=== PATIENT | female | born 1955 | race Caucasian/White ===

== ENCOUNTER → 2016-08-21 | Emergency (ER) | payer OTHER ==
[2016-08-21 14:16] VITALS: BP 145/88; PULSE 66; RESP 16; TEMP 98.4; O2SAT 98
--- NOTE | 2016-08-21 15:38 | UCPHY ---
H & P Time Seen by Provider: 08/21/16 15:17 Patient Type: New HPI/ROS: This patient slipped with a knife from the kitchen cooking and sustained a laceration to her left thumb shortly prior to arrival here with moderate pain and moderate bleeding that slowed with direct pressure. She reports no other injuries. ROS:No difficulty moving the thumb. No numbness. 5 point ROS is otherwise negative. Past Medical/Surgical History: Immunizations up-to-date. Smoking Status: Never smoked Physical Exam: Physical Exam Vital signs are normal. General: No acute distress HEENT: Atraumatic. Eyes: Pupils equal and react to light. Extraocular motions are intact. Lungs: No respiratory distress. Cardiac: Brisk capillary refill is intact throughout. Pulses are 2+ and symmetric in the affected extremity. Skin: No rash or pallor. There is 1.5 cm full-thickness laceration to the palmar aspect of the left thumb middle phalanx region. No active bleeding. No foreign bodies under examination. Subcutaneous tissues evident but no deeper structures are injured. Neuro: Alert with no sensorimotor deficits to the affected digit.. Constitutional: Initial Vital Signs Temperature (C) 36.9 C 08/21/16 14:12 Heart Rate 66 08/21/16 14:12 Respiratory Rate 16 08/21/16 14:12 Blood Pressure 145/88 H 08/21/16 14:12 O2 Sat (%) 98 08/21/16 14:12 Allergies/Adverse Reactions: No Known Allergies Allergy (Unverified 08/21/16 14:16) Home Medications: Medication Instructions Recorded Synthroid 08/21/16 MDM/Departure - MDM Procedures: Digital block: After verbal consent, using a 50 50 mix of 0.5% Marcaine 2% plain lidocaine, 27 gauge needle, chlorhexidine scrub under sterile conditions- 3 injections were administered to the base of the affected finger, 8 mL with good effect. Patient tolerated this well. There were no complications. The wound is 1.5 cm described physical exam subcutaneous tissues evident but no deeper structures are injured.. The wound was copiously irrigated with saline. The wound was explored for foreign bodies and none were found. The wound was prepped and draped in the normal sterile fashion. The edges were reapproximated using 4 0 Ethilon-4 running sutures with good hemostasis and cosmesis. The patient tolerated the procedure well. There were no complications - Depart Disposition: Home, Routine, Self-Care Clinical Impression: Thumb laceration Qualifiers: Encounter type: initial encounter Laterality: left Qualified Code(s): S61.012A - Laceration without foreign body of left thumb without damage to nail, initial encounter Condition: Good Instructions: Finger Laceration (ED) Additional Instructions: Diagnosis: Thumb laceration Plan: Keep the wound clean and dry for the next 2 days. Then clean it daily with warm soapy water Return for suture removal in 10-12 days Return sooner if he develops redness, discharge or other concerns for infection. Referrals: ESTHELA WILSON MD [Other] - As per Instructions - PQRS PQRS Measurement: NA
== END | disposition home or self-care (01) ==
LOC: CED 13:57
DX: S61.012A Laceration without foreign body of left thumb without damage to nail, initial encounter (principal); W26.0XXA Contact with knife, initial encounter; Y93.G1 Activity, food preparation and clean up; Y92.000 Kitchen of unspecified non-institutional (private) residence as the place of occurrence of the external cause
CPT/HCPCS: 12001-PO; 99203-PO; G0463-PO

== ENCOUNTER 2017-10-09 10:49 | Emergency (ER) | payer OTHER ==
[2017-10-09] MEDS ORDERED: IBUPROFEN 600 MG TAB PO ONE (11:12)
--- NOTE | 2017-10-09 11:17 | EDPHY ---
H & P Stated Complaint: TRIPPED AND FELL NO LOC/OR NECK PAIN/L SHOULDER/ARM INJ FACE LAC Time Seen by Provider: 10/09/17 11:16 HPI/ROS: HPI: This is a 62-year-old female who presents with Chief Complaint: TRIPPED AND FELL NO LOC/OR NECK PAIN/L SHOULDER/ARM INJ FACE LAC Location: Left orthodox area, left shoulder Quality: Injury Duration: 45 min prior to arrival Signs and Symptoms: + bleeding, no radiation, no numbness, no weakness, no tingling, no incontinence, + decreased range of motion, no swelling, + pain, no fever Timing: Acute Severity: 12/19 Context: Patient is right-hand dominant, presents accompanied by friend with complaints of left shoulder injury and cut to left orthodox area. Patient was walking on the sidewalk when her shoe tripped over uneven cement. She reports that she lost her balance and started to fall forward. She landed directly on her left shoulder and then her left orthodox area struck the cement. Denies LOC/ head injury/neck pain/dizziness/nausea/vomiting/amnesia. Reports tetanus is current. Does not take any blood thinners. She reports that she felt immediate , moderate, nonradiating pain in the left lateral shoulder area, nonradiating in nature accompanied by decreased range of motion secondary to pain. She reports that she can move her left wrist and fingers without difficulty. She is guarding her left arm toward her chest. This was a witnessed accidental fall. Modifying Factors: None Comment: ROS: see HPI Constitutional: No fever, no chills, no weight loss Eyes: No blurred vision Respiratory: No shortness of breath, no cough Cardiovascular: No chest pain Gastrointestinal: No nausea, no vomiting no diarrhea Genitourinary: No dysuria Extremities: No myalgias Neurologic: No weakness, no numbness Skin: No rashes Hematologic: No bruising, no bleeding MEDICAL/SURGICAL/SOCIAL HISTORY: Medical history: Hypothyroidism Surgical history: Denies Social history: Retired, . Family history noncontributory CONSTITUTIONAL: Extremely polite and cooperative, adult white female, awake and alert, no obvious distress HEENT: Superficial abrasion noted to left orthodox-no active bleeding and normocephalic, PERRL, EOMI. no globe entrapment, no raccoon eyes. no Simeon signs.Tympanic membranes clear. No tympanic membrane rupture. Nares patent; no septal hematoma. Oropharynx clear, no exudate and moist pink mucosa. No malocclusion. no dental trauma. Airway patent. No lymphadenopathy. NECK: supple, no midline tenderness, flexion 45 degrees, extension 45 degrees, right and left lateral flexion 45 degrees. No meningismus. Cardiovascular: Normal S1/S2, regular rate, regular rhythm, without murmur rub or gallop. PULMONARY/CHEST: Symmetrical and nontender. no crepitus. Clear to auscultation bilaterally. Good air movement. No accessory muscle usage. ABDOMEN: Soft, nondistended, nontender, no ecchymosis, no rebound, no guarding , no peritoneal signs, no masses or organomegaly. No CVAT. PELVIC: no pain with rocking; bilateral hips flexion 125 degrees, extension 30 degrees, with no pain internal rotation and no pain external rotation. BACK: No midline tenderness, no paraspinous spasm, deep tendon reflexes 2/2, no pain with straight leg raise EXTREMITIES: 2/2 pulses, patient is holding left arm flexed at the elbow against her chest. Left ELBOW: Full extension to 180, flexion to 150, no tenderness over medial epicondyle, no tenderness over lateral epicondyle, no effusion. Left WRIST: Extension to 70, flexion to 80, radial deviation to 20 degree, ulnar deviation to 30, no scaphoid tenderness, no tenderness over ulnar styloid, no tenderness over radial styloid. able to move all 5 fingers with good light touch sensation. no deformities, no clubbing, no cyanosis or edema. NEUROLOGICAL: no focal neuro deficits. GCS 15. SKIN: Warm and dry, no erythema. no rash. Good capillary refill. Source: Patient, RN/MD Exam Limitations: No limitations - Personal History Current Tetanus/Diphtheria Vaccine: Yes Tetanus Vaccine Date: < 10 YEARS - Medical/Surgical History Hx Asthma: No Hx Chronic Respiratory Disease: No Hx Diabetes: No Hx Cardiac Disease: No Hx Renal Disease: No Hx Cirrhosis: No Hx Alcoholism: No Hx HIV/AIDS: No Hx Splenectomy or Spleen Trauma: No Other PMH: HYPOTHYROID/HTN - Social History Smoking Status: Never smoked Constitutional: Initial Vital Signs Temperature (C) 36.5 C 10/09/17 10:59 Heart Rate 60 10/09/17 10:59 Respiratory Rate 18 10/09/17 10:59 Blood Pressure 112/86 H 10/09/17 10:59 O2 Sat (%) 92 10/09/17 10:59 O2 Delivery Mode Room Air Allergies/Adverse Reactions: hydrocodone Allergy (Verified 10/09/17 10:58) oxycodone Allergy (Verified 10/09/17 10:58) Home Medications: Medication Instructions Recorded Synthroid 08/21/16 Chlorthalidone 10/09/17 Cyclobenzaprine [Flexeril 10 MG 10 mg PO TID PRN #15 tab 10/09/17 (*)] morphINE IR [morphINE IR 15 mg (*)] 15 mg PO Q8 PRN #12 tab 10/09/17 Medical Decision Making - Diagnostics Imaging Results: Imaging Impressions Shoulder X-Ray 10/09/17 11:07 Impression: Impacted fracture at the surgical neck of the proximal left humerus , with an avulsion fracture off the greater tuberosity. Procedures: Procedure: Laceration repair. Verbal consent was obtained from the patient. The left orthodox, simple, deep, 1/ 4 inch x 1/4 inch laceration was anesthetized in the usual fashion using 5 mL of 0.5% bupivacaine with epinephrine. The wound was irrigated, draped and explored to its base with a gloved finger. There were no deep structures involved. No tendon injury was identified. The wound was repaired with #3, 6- 0 Prolene. Good hemostasis was achieved and patient tolerated procedure well. The procedure was performed by myself. Procedure: Splint placement. A left coaptation splint was applied by myself and with the help of Emergency Room fire control technician g. After application of the splint I returned and re-examined the patient. The splint was adequately immobilizing the joint and distal to the splint the patient's circulation and sensation was intact. ED Course/Re-evaluation: Given morphine 15 mg as allergy to hydrocodone and oxycodone along with ibuprofen upon arrival Reviewed showed left shoulder x-ray via PACs and shows left humeral greater tuberosity and neck fracture; comminuted; minimally displaced. Discussed possibility of rotator cuff tear as well due to mechanism injury and greater tuberosity being fractured as well. Superficial abrasion on orthodox; let applied; irrigated thoroughly; bacitracin clean sterile dressing placed. Patient does not take any blood thinners, age < 65 and no LOC/neurological deficits. Patient Politely declined head CT scan and cervical CT scan. Placed in coaptation splint and given sling. Given p.o. Flexeril after splint placement due to muscle spasm. No signs of neurovascular compromise/tenting of skin/compartment syndrome/ extremities and joints examined above and below area of concern and are neurovascularly intact/axillary or brachial plexus injury. This patient was seen under the supervision of my secondary supervising physician. I evaluated care for this patient independently. Discussed this patient with Dr. Bravo who did not see the patient. Differential Diagnosis: Differential diagnosis includes but is not limited to AC separation, humerus fracture, clavicle fracture, rotator cuff injury, concussion. - Data Points Medications Given: Discontinued Medications Ibuprofen (Motrin) 600 mg PO EDNOW ONE Stop: 10/09/17 11:13 Last Admin: 10/09/17 11:13 Dose: 600 mg Morphine Sulfate (Morphine Ir) 15 mg PO ONCE ONE Stop: 10/09/17 11:26 Last Admin: 10/09/17 11:46 Dose: 15 mg Tetracaine/Epinephrine/Lidocaine (Let Gel Topical) 1 ea TP EDNOW ONE Stop: 10/09/17 11:25 Last Admin: 10/09/17 11:32 Dose: 1 ea Departure - Departure Disposition: Home, Routine, Self-Care Clinical Impression: Closed fracture of neck of left humerus Qualifiers: Encounter type: initial encounter Qualified Code(s): S42.212A - Unspecified displaced fracture of surgical neck of left humerus, initial encounter for closed fracture Abrasion of orthodox Qualifiers: Encounter type: initial encounter Qualified Code(s): S00.81XA - Abrasion of other part of head, initial encounter Injury of left rotator cuff Qualifiers: Encounter type: initial encounter Qualified Code(s): S46.002A - Unspecified injury of muscle(s) and tendon(s) of the rotator cuff of left shoulder, initial encounter Laceration of forehead without complication Qualifiers: Encounter type: initial encounter Qualified Code(s): S01.81XA - Laceration without foreign body of other part of head, initial encounter Condition: Good Instructions: Care For Your Stitches (ED), How to Use a Sling (ED), Splint Care (ED), ORIF (DC), Facial Laceration (ED), Proximal Humerus Fracture (ED) Additional Instructions: Keep the splint dry and in place until seen by Orthopedics. Wear the sling to help with comfort. Wash abrasion daily with mild soap and water; then pat dry; apply topical antibiotic ointment daily until fully healed. Wound Care Follow-Up: Removal of sutures in [ 5 ] days. Suture removal is complimentary in uncomplicated cases. Infection or abnormal findings would require reevaluation by the MD. In that case, you may be billed. Take Tylenol 650 mg every 4 hours and/or Ibuprofen 600 mg every 8 hours with food as needed for pain. Take morphine 15 mg every 8 hr as needed for severe, breakthrough pain. Apply ice for 30 minutes at a time; 2-3 times per day for the next 1-2 days. Please observe concussion precautions. If you are having signs and symptoms of concussion last greater than 1-2 weeks, follow-up with Dr. Gannon in the concussion Clinic. Call today orthopedic office of Dr. Ross for follow up with Orthopedics in 5- 7 days at which time they will evaluate and recommend with you if conservative management versus surgery is indicated. Return to the ER immediately if you experience new or worsening pain, discoloration, numbness, tingling, or any other symptoms that concern you. Follow-Up: Please follow-up as noted above. Follow-up sooner if your condition worsens or if you develop any new problems. Call as soon as possible for an appointment. Be clear when you call for an appointment that this is an Emergency Department follow-up. Contact the Emergency Department if you have trouble arranging follow-up care. Our referrals are not based on your insurance network. When time allows, contact your insurance carrier to verify the referral physician is in your plan. If not, get a referral for an in-personal computer network analyst. Referrals: Wale Ross MD [Medical Doctor] - As per Instructions Shikha Boss MD [Primary Care Provider] - As per Instructions Nani Gannon MD [Medical Doctor] - As per Instructions Prescriptions: Cyclobenzaprine [Flexeril 10 MG (*)] 10 mg PO TID PRN #15 tab PRN Reason: Spasms morphINE IR [morphINE IR 15 mg (*)] 15 mg PO Q8 PRN #12 tab PRN Reason: Pain, Breakthrough
[2017-10-09] MEDS ORDERED: LET GEL TOPICAL 1 EA SYR TP ONE (11:24)
[2017-10-09] MEDS ORDERED: CYCLOBENZAPRINE 10 MG TAB PO ONE (13:01)
[2017-10-09 13:03] VITALS: BP 117/95
== END 2017-10-09 13:14 | disposition home or self-care (01) ==
PROC: 0HQ1XZZ Repair Face Skin, External Approach (ICD-10-PCS; principal; 2017-10-09)
DX: S42.212A Unspecified displaced fracture of surgical neck of left humerus, initial encounter for closed fracture (principal); S46.002A Unspecified injury of muscle(s) and tendon(s) of the rotator cuff of left shoulder, initial encounter; S01.81XA Laceration without foreign body of other part of head, initial encounter; W01.198A Fall on same level from slipping, tripping and stumbling with subsequent striking against other object, initial encounter; Y92.480 Sidewalk as the place of occurrence of the external cause; Y99.8 Other external cause status; Y93.01 Activity, walking, marching and hiking
CPT/HCPCS: A4565

== ENCOUNTER → 2017-10-19 | Outpatient (CLI) | payer OTHER | LOC: BMCIMAGING 10:38 | PROVIDERS: ATTEND Orthopaedic Surgery Hand Surgery | DX: S42.202D Unspecified fracture of upper end of left humerus, subsequent encounter for fracture with routine healing (principal) ==

== ENCOUNTER → 2017-10-26 | Outpatient (CLI) | payer OTHER | LOC: BMCIMAGING 15:13 | PROVIDERS: ATTEND Orthopaedic Surgery Hand Surgery | DX: S42.202D Unspecified fracture of upper end of left humerus, subsequent encounter for fracture with routine healing (principal) ==

== ENCOUNTER → 2017-11-21 | Outpatient (CLI) | payer OTHER | LOC: BMCIMAGING 10:39 | PROVIDERS: ATTEND Orthopaedic Surgery Hand Surgery | DX: S42.202D Unspecified fracture of upper end of left humerus, subsequent encounter for fracture with routine healing (principal) ==